=== PATIENT | female | born 2000 | race Caucasian/White ===

== ENCOUNTER → 2023-08-02 | Outpatient (CLI) | payer BC, SELFPAY ==
[2023-08-02 09:51] LABS: AST(SGOT) 26 U/L (15-37); Alanine Aminotransfer ALT/SGPT 41 U/L (13-56); Cholesterol 135 mg/dL (200); High Density Lipoprotein 74 mg/dL; Triglycerides 50 mg/dL; Very Low Density Lipoprotein 10 mg/dL (5-40)
[2023-08-03 06:37] LABS: LDL, Direct 120295 66 mg/dL (0-99)
== END | disposition home or self-care (01) ==
PROVIDERS: PCP Family Medicine; Referring Provider Dermatology; Visit Provider Dermatology
DX: L70.0 Acne vulgaris (principal); Z79.899 Other long term (current) drug therapy
CPT/HCPCS: 36415; 80061; 83721; 84450; 84460